=== PATIENT | male | born 1995 | race Caucasian/White ===

== ENCOUNTER 2017-05-08 22:47 | Inpatient (IN) | payer SELFPAY ==
[~2017-05-08] VITALS: Ht 182.9 cm; Wt 82.2 kg
[~2017-05-08 22:47] MED LIST: ALL220TA PO; Z.0.NO CURRENT MEDS
[2017-05-08 22:59] VITALS: BP 162/101; PULSE 92; RESP 24; TEMP 98.5; O2SAT 100
[2017-05-08 23:10] VITALS: BP 149/87; PULSE 82; RESP 18; RESP 20; TEMP 98.5; O2SAT 100
[2017-05-08] MEDS ORDERED: SODIUM CHLOR 0.9% 1000 ML INJ 1,000 ML IV SCH (23:16)
--- NOTE | 2017-05-08 23:22 | PD ---
HPI Chief Complaint: Flank/Kidney Pain Time Seen by Provider: 23:10 Travel History International Travel<30 days: No Contact w/Intl Traveler<30days: No Traveled to known affect area: No History of Present Illness HPI 21-year-old male here for evaluation of sharp left upper quadrant abdominal pain /left lower chest pain. Symptoms started spontaneously today while at work. He has had similar pains in the past, however they usually resolve on their own. This time the pain is more severe and is more persistent. Pain is worse with inspiration and slightly worse with movements. No history of abdominal surgeries. No known history of cardiopulmonary disease. No history of DVT or PE. No trauma. He denies urinary symptoms such as hematuria or dysuria. No fevers or chills. He smokes marijuana. Denies IVDU. [facility] Past Medical History Developmental Delay: No Diminished Hearing: No Immunizations Current: Yes Social History Alcohol Use: No Tobacco Use: No Substance Use: No Allergies-Medications (Allergen,Severity, Reaction): Coded Allergies: No Known Allergies (Unverified , 08/22/12) Reported Meds & Prescriptions Reported Meds & Active Scripts Active No Active Prescriptions or Reported Medications Review of Systems Except as stated in HPI: all other systems reviewed are Neg Physical Exam Narrative GENERAL: Well-developed, well-nourished, mild distress secondary to pain, appears anxious. SKIN: Focused skin assessment warm/dry. No rash. HEAD: Atraumatic. Normocephalic. EYES: Pupils equal and round. No scleral icterus. No injection or drainage. ENT: Mucous membranes pink and moist. NECK: Trachea midline. No JVD. CARDIOVASCULAR: Regular rate and rhythm. RESPIRATORY: No accessory muscle use. Clear to auscultation. Breath sounds equal bilaterally. GASTROINTESTINAL: Abdomen soft, nondistended. Mild left upper quadrant tenderness without peritoneal signs. Rest of abdomen is soft and nontender. MUSCULOSKELETAL: No obvious deformities. No clubbing. No cyanosis. No edema. Mild left lower/anterior/lateral chest wall tenderness without crepitus, without step-off, without paradoxical chest wall movement. NEUROLOGICAL: Awake and alert. No obvious cranial nerve deficits. Motor grossly within normal limits. Normal speech. PSYCHIATRIC: Appropriate mood and affect; insight and judgment normal. Data Data Last Documented VS Vital Signs Date Time Temp Pulse Resp B/P (MAP) Pulse Ox O2 Delivery O2 Flow Rate FiO2 8/27/17 23:15 77 20 05/08/17 23:10 100 Room Air 05/08/17 22:59 98.5 Orders Orders Complete Blood Count With Diff (05/08/17 23:16) Comprehensive Metabolic Panel (05/08/17 23:16) Lipase (05/08/17 23:16) Prothrombin Time / Inr (Pt) (05/08/17 23:16) Act Partial Throm Time (Ptt) (05/08/17 23:16) Urinalysis - C+S If Indicated (05/08/17 23:16) Ct Abd/Pel W Iv Contrast(Rout) (05/08/17 23:16) Iv Access Insert/Monitor (05/08/17 23:16) Ecg Monitoring (05/08/17 23:16) Oximetry (05/08/17 23:16) Morphine Inj (Morphine Inj) (05/08/17 23:30) Sodium Chlor 0.9% 1000 Ml Inj (Ns 1000 M (05/08/17 23:16) Sodium Chloride 0.9% Flush (Ns Flush) (05/08/17 23:30) Chest, Single Ap (05/08/17 23:16) Ct Pulmonary Angiogram (05/08/17 23:16) Ckmb (Isoenzyme) Profile (05/08/17 23:16) Troponin I (05/08/17 23:16) Electrocardiogram (05/08/17 ) Labs Laboratory Tests Test 05/08/17 23:30 White Blood Count 16.0 TH/MM3 Red Blood Count 4.61 MIL/MM3 Hemoglobin 15.2 GM/DL Hematocrit 44.4 % Mean Corpuscular Volume 96.2 FL Mean Corpuscular Hemoglobin 32.9 PG Mean Corpuscular Hemoglobin Concent 34.2 % Red Cell Distribution Width 12.1 % Platelet Count 245 TH/MM3 Mean Platelet Volume 9.8 FL Neutrophils (%) (Auto) 81.3 % Lymphocytes (%) (Auto) 10.8 % Monocytes (%) (Auto) 5.9 % Eosinophils (%) (Auto) 0.6 % Basophils (%) (Auto) 1.4 % Neutrophils # (Auto) 13.1 TH/MM3 Lymphocytes # (Auto) 1.7 TH/MM3 Monocytes # (Auto) 0.9 TH/MM3 Eosinophils # (Auto) 0.1 TH/MM3 Basophils # (Auto) 0.2 TH/MM3 CBC Comment DIFF FINAL Differential Comment MDM Medical Decision Making Medical Screen Exam Complete: Yes Emergency Medical Condition: Yes Interpretation(s) EKG: Sinus, rate 89, normal axis, normal intervals, no acute ischemic abnormality. Differential Diagnosis Pneumothorax, PE, pleurisy, gastritis, peptic ulcer disease, nephrolithiasis, pyelonephritis, ACS unlikely Narrative Course Initial vital signs show heart rate 92, blood pressure 162/101, pulse ox 100% on room air, oral temp of 98.5F. Chest x-ray: No acute cardiopulmonary abnormality is identified. Scripts No Active Prescriptions or Reported Meds David Belcher MD May 08, 2017 23:22
--- NOTE | 2017-05-08 23:29 | RADRPT ---
EXAM DATE/TIME: 05/08/2017 23:22 [facility] COMPARISON: No previous studies available for comparison. INDICATIONS : Short of breath. MEDICAL HISTORY : None. SURGICAL HISTORY : None. ENCOUNTER: Initial ACUITY: 1 day PAIN SCORE: 6/10 LOCATION: Bilateral chest FINDINGS: Portable AP view of the chest demonstrates a normal-sized cardiac silhouette. No effusion, consolidat ion, or pneumothorax is visualized. The bones and soft tissues demonstrate no acute abnormality. Mult iple lines overlie the patient. CONCLUSION: No acute cardiopulmonary abnormality is identified. Sylvester Duval MD on May 08, 2017 at 23:27 Board Certified Radiologist. This report was verified electronically.
[2017-05-08] MEDS ORDERED: SODIUM CHLORIDE 0.9% FLUSH 10 ML FLUSH IV FLUSH PRN (23:30)
[2017-05-08] MEDS ORDERED: MORPHINE SULFATE 4 MG/ML INJ IV PUSH ONE (23:30)
[2017-05-08] MEDS ORDERED: IOHEXOL 350 MG/ML 10 ML VIAL (for RAD DIAG) IVCONTRAST ONE (23:45)
[2017-05-08 23:50] LABS: AUTOMATED NEUTROPHIL # 13.1 TH/MM3 (1.8-7.7); BASOPHIL # 0.2 TH/MM3 (0-0.2); BASOPHIL % 1.4 % (0.0-2.0); EOSINOPHIL # 0.1 TH/MM3 (0-0.4); EOSINOPHIL % 0.6 % (0.0-4.0); HEMATOCRIT 44.4 % (39.0-51.0); LYMPH % 10.8 % (9.0-44.0); LYMPHOCYTE # 1.7 TH/MM3 (1.0-4.8); MEAN CELL VOLUME 96.2 FL (80.0-100.0); MEAN CORPUSCULAR HEMOGLOBIN 32.9 PG (27.0-34.0); MEAN CORPUSCULAR HGB CONC 34.2 % (32.0-36.0); MONO % 5.9 % (0.0-8.0); NEUT % 81.3 % (16.0-70.0); PLATELET COUNT 245 TH/MM3 (150-450); RED BLOOD COUNT 4.61 MIL/MM3 (4.50-5.90); RED CELL DISTRIBUTION WIDTH 12.1 % (11.6-17.2)
[2017-05-08 23:55] LABS: HEMO FLAGS DIFF FINAL
[2017-05-08 23:57] LABS: CHLORIDE 101 MEQ/L (98-107); POTASSIUM 3.8 MEQ/L (3.5-5.1); SODIUM (NA) 137 MEQ/L (136-145)
[2017-05-09] VITALS (10 sets, daily range): BP systolic 124–143; BP diastolic 65–86; PULSE 45–71; RESP 16–19; TEMP 95.4–96.8; O2SAT 97–100
[2017-05-09 00:01] LABS: ANION GAP 10 MEQ/L (5-15); BICARBONATE 25.8 MEQ/L (21.0-32.0); BLOOD UREA NITROGEN 13 MG/DL (7-18)
[2017-05-09 00:03] LABS: APTT (PATIENT) 28.2 SEC (24.3-30.1); INTERNATIONAL NORMALIZED RATIO 0.9 RATIO; PROTHROMBIN TIME - PATIENT 10.1 SEC (9.8-11.6)
[2017-05-09 00:04] LABS: ALT (GPT) 20 U/L (12-78); AST (GOT) 21 U/L (15-37); GLOMERULAR FILTRATION RATE 51 ML/MIN (>89)
[2017-05-09 00:06] LABS: TOTAL BILIRUBIN ADULT 0.4 MG/DL (0.2-1.0)
[2017-05-09 00:07] LABS: ALKALINE PHOSPHATASE 69 U/L (45-117); CREATINE KINASE 217 U/L (39-308)
[2017-05-09 00:19] LABS: CKMB 1.5 NG/ML (0.5-3.6)
--- NOTE | 2017-05-09 00:37 | RADRPT ---
EXAM DATE/TIME: 05/09/2017 00:02 [facility] COMPARISON: No previous studies available for comparison. INDICATIONS : Left flank pain. IV CONTRAST: 100 cc Omnipaque 350 (iohexol) IV ; Cumulative dose for multiple exams. ORAL CONTRAST: No oral contrast ingested. RADIATION DOSE: 12.44 CTDIvol (mGy) MEDICAL HISTORY : None SURGICAL HISTORY : None. ENCOUNTER: Initial ACUITY: 1 day PAIN SCALE: 7/10 LOCATION: Left flank TECHNIQUE: Volumetric scanning of the abdomen and pelvis was performed. Using automated exposure control and ad justment of the mA and/or kV according to patient size, radiation dose was kept as low as reasonably achievable to obtain optimal diagnostic quality images. DICOM format image data is available electro nically for review and comparison. FINDINGS: LOWER LUNGS: The visualized lower lungs are clear. LIVER: Homogeneous density without lesion. There is no dilation of the biliary tree. No calcified gallston es. SPLEEN: Normal size without lesion. PANCREAS: Within normal limits. KIDNEYS: There is moderate to severe left hydronephrosis and proximal hydroureter caused by an elongated ovoid stone in the left mid ureter measuring approximately 10 cm in line and 8 x 4 mm on the axial image. There is also delayed left nephrogram. No other renal stones are identified. ADRENAL GLANDS: Within normal limits. VASCULAR: There is no aortic aneurysm. BOWEL/MESENTERY: The stomach, small bowel, and colon demonstrate no acute abnormality. There is no free intraperitone al air or fluid. ABDOMINAL WALL: Within normal limits. RETROPERITONEUM: There is no lymphadenopathy. BLADDER: No wall thickening or mass. REPRODUCTIVE: Within normal limits. INGUINAL: There is no lymphadenopathy or hernia. MUSCULOSKELETAL: Within normal limits for patient age. CONCLUSION: 1. There is a stone in the left mid ureter causing severe left hydronephrosis and hydroureter and del ayed nephrogram. It measures approximately 10 mm in length. 2. No other acute finding is identified in the abdomen or pelvis. Sylvester Duval MD on May 09, 2017 at 0:32 Board Certified Radiologist. This report was verified electronically.
--- NOTE | 2017-05-09 00:41 | RADRPT ---
EXAM DATE/TIME: 05/09/2017 00:02 [facility] COMPARISON: No previous studies available for comparison. INDICATIONS : Left chest pain. IV CONTRAST: 100 cc Omnipaque 350 (iohexol) IV ; Cumulative dose for multiple exams. RADIATION DOSE: 14.29 CTDIvol (mGy) MEDICAL HISTORY : None SURGICAL HISTORY : None. ENCOUNTER: Initial ACUITY: 1 day PAIN SCALE: 7/10 LOCATION: Left chest TECHNIQUE: Volumetric scanning of the chest was performed using a pulmonary embolism protocol MIP images were re constructed. Using automated exposure control and adjustment of the mA and/or kV according to patien t size, radiation dose was kept as low as reasonably achievable to obtain optimal diagnostic quality images. DICOM format image data is available electronically for review and comparison. Follow-up recommendations for detected pulmonary nodules are based at a minimum on nodule size and pa tient risk factors according to Fleischner Society Guidelines. FINDINGS: PULMONARY ARTERIES: No filling defects are seen in the pulmonary arteries through the segmental level. LUNGS: There is mild respiratory motion artifact. There is no consolidation or pneumothorax. In the right lo wer lobe there is a subpleural nodule measuring 4 mm in the left lower lobe there is a 4 mm subpleura l nodule. Based on appearance this could represent intrapulmonary lymph nodes. PLEURAE: There is no pleural thickening or pleural effusion. MEDIASTINUM: Heart and great vessels demonstrate no abnormality. There is mild residual thymic tissue in anterior mediastinum. MUSCULOSKELETAL: No acute abnormality. MISCELLANEOUS: The visualized upper abdominal organs demonstrate no acute abnormality. CONCLUSION: 1. No PE is identified. 2. There are 4 mm subpleural nodules identified in the lower lobes bilaterally. Given patient's age a nd low risk for primary pulmonary malignancy, no specific followup is needed. Sylvester Duval MD on May 09, 2017 at 0:36 Board Certified Radiologist. This report was verified electronically.
[2017-05-09] MEDS ORDERED: KETOROLAC TROMETHAMINE 30 MG/ML (IVP) VIAL IV PUSH ONE (00:45)
[2017-05-09] MEDS ORDERED: ONDANSETRON HCL 4 MG/2 ML VIAL IV PUSH ONE (00:45)
[2017-05-09 01:00] LABS: BLOOD, URINE LARGE (NEG); GLUCOSE,URINE NEG (NEG); KETONE, URINE NEG (NEG); NITRITE,URINE NEG (NEG); PH, URINE 8.5 (5.0-8.5)
[2017-05-09 01:06] LABS: URINE COLOR YELLOW (YELLW/STRAW)
[2017-05-09 01:07] LABS: MUCUS URINE OCC /lpf (OCC)
[2017-05-09 01:08] LABS: BACTERIA, URINE FEW /hpf; COMMENT (UR) CULT NOT INDICATED; CULTURE IF INDICATED CULT NOT INDICATED; RBC, URINE 100-200 /hpf (0-3); SQUAMOUS EPITHELIAL CELL URINE 0-5 /hpf (0-5)
--- NOTE | 2017-05-09 01:18 | PD ---
Physical Exam Narrative Patient was seen by ED physician and signed out to me. Data Data Last Documented VS Vital Signs Date Time Temp Pulse Resp B/P (MAP) Pulse Ox O2 Delivery O2 Flow Rate FiO2 05/08/17 23:55 18 05/08/17 23:15 77 05/08/17 23:10 100 Room Air 05/08/17 22:59 98.5 Orders Orders Complete Blood Count With Diff (05/08/17 23:16) Comprehensive Metabolic Panel (05/08/17 23:16) Lipase (05/08/17 23:16) Prothrombin Time / Inr (Pt) (05/08/17 23:16) Act Partial Throm Time (Ptt) (05/08/17 23:16) Urinalysis - C+S If Indicated (05/08/17 23:16) Ct Abd/Pel W Iv Contrast(Rout) (05/08/17 23:16) Iv Access Insert/Monitor (05/08/17 23:16) Ecg Monitoring (05/08/17 23:16) Oximetry (05/08/17 23:16) Morphine Inj (Morphine Inj) (05/08/17 23:30) Sodium Chlor 0.9% 1000 Ml Inj (Ns 1000 M (05/08/17 23:16) Sodium Chloride 0.9% Flush (Ns Flush) (05/08/17 23:30) Chest, Single Ap (05/08/17 23:16) Ct Pulmonary Angiogram (05/08/17 23:16) Ckmb (Isoenzyme) Profile (05/08/17 23:16) Troponin I (05/08/17 23:16) Electrocardiogram (05/08/17 ) CKMB (05/08/17 23:30) CKMB% (05/08/17 23:30) Iohexol 350 Inj (Omnipaque 350 Inj) (05/08/17 23:45) Ketorolac Inj (Toradol Inj) (05/09/17 00:45) Ondansetron Inj (Zofran Inj) (05/09/17 00:45) Labs Laboratory Tests Test 05/08/17 23:30 05/09/17 00:50 White Blood Count 16.0 TH/MM3 Red Blood Count 4.61 MIL/MM3 Hemoglobin 15.2 GM/DL Hematocrit 44.4 % Mean Corpuscular Volume 96.2 FL Mean Corpuscular Hemoglobin 32.9 PG Mean Corpuscular Hemoglobin Concent 34.2 % Red Cell Distribution Width 12.1 % Platelet Count 245 TH/MM3 Mean Platelet Volume 9.8 FL Neutrophils (%) (Auto) 81.3 % Lymphocytes (%) (Auto) 10.8 % Monocytes (%) (Auto) 5.9 % Eosinophils (%) (Auto) 0.6 % Basophils (%) (Auto) 1.4 % Neutrophils # (Auto) 13.1 TH/MM3 Lymphocytes # (Auto) 1.7 TH/MM3 Monocytes # (Auto) 0.9 TH/MM3 Eosinophils # (Auto) 0.1 TH/MM3 Basophils # (Auto) 0.2 TH/MM3 CBC Comment DIFF FINAL Differential Comment Prothrombin Time 10.1 SEC Prothromb Time International Ratio 0.9 RATIO Activated Partial Thromboplast Time 28.2 SEC Blood Urea Nitrogen 13 MG/DL Creatinine 1.70 MG/DL Random Glucose 172 MG/DL Total Protein 7.9 GM/DL Albumin 4.2 GM/DL Calcium Level 9.2 MG/DL Alkaline Phosphatase 69 U/L Aspartate Amino Transf (AST/SGOT) 21 U/L Alanine Aminotransferase (ALT/SGPT) 20 U/L Total Bilirubin 0.4 MG/DL Sodium Level 137 MEQ/L Potassium Level 3.8 MEQ/L Chloride Level 101 MEQ/L Carbon Dioxide Level 25.8 MEQ/L Anion Gap 10 MEQ/L Estimat Glomerular Filtration Rate 51 ML/MIN Total Creatine Kinase 217 U/L Creatine Kinase MB 1.5 NG/ML Troponin I LESS THAN 0.02 NG/ML Lipase 171 U/L Urine Color YELLOW Urine Turbidity SLIGHT Urine pH 8.5 Urine Specific [place] GREATER THAN 1.035 Urine Protein 30 mg/dL Urine Glucose (UA) NEG mg/dL Urine Ketones NEG mg/dL Urine Occult Blood LARGE Urine Nitrite NEG Urine Bilirubin NEG Urine Leukocyte Esterase NEG Urine RBC 100-200 /hpf Urine Squamous Epithelial Cells 0-5 /hpf Urine Amorphous Sediment FEW Urine Bacteria FEW /hpf Urine Mucus OCC /lpf Microscopic Urinalysis Comment CULT NOT INDICATED MDM Supervised Visit with GEORGETTE: No Interpretation(s) Last Impressions Chest X-Ray 05/08/17 0623 Signed Impressions: Service Date/Time: Monday, May 08, 2017 23:22 - CONCLUSION: No acute cardiopulmonary abnormality is identified. Sylvester Duval MD CT Angiography 05/08/17 2316 Signed Impressions: Service Date/Time: Tuesday, May 09, 2017 00:02 - CONCLUSION: 1. No PE is identified. 2. There are 4 mm subpleural nodules identified in the lower lobes bilaterally. Given patient's age and low risk for primary pulmonary malignancy , no specific followup is needed. Sylvester Duval MD Abdomen/Pelvis CT 05/08/17 2316 Signed Impressions: Service Date/Time: Tuesday, May 09, 2017 00:02 - CONCLUSION: 1. There is a stone in the left mid ureter causing severe left hydronephrosis and hydroureter and delayed nephrogram. It measures approximately 10 mm in length. 2. No other acute finding is identified in the abdomen or pelvis. Sylvester Duval MD Narrative Course Normal saline solution 1 25 cc an hour. Morphine 4 mg IV. Toradol 30 mg IV. Zofran 4 mg IV. Diagnosis Primary Impression: Nephrolithiasis Admitting Information Admitting Physician Requests: Admit Scripts No Active Prescriptions or Reported Meds Garcia Chen MD May 09, 2017 01:18
[2017-05-09] MEDS ORDERED: MAGNESIUM HYDROXIDE SUSP 30 ML CUP PO PRN (01:30)
[2017-05-09] MEDS ORDERED: SENNOSIDES 8.6 MG TAB PO PRN (01:30)
[2017-05-09] MEDS ORDERED: ONDANSETRON HCL 4 MG/2 ML VIAL IVP PRN (01:30)
[2017-05-09] MEDS ORDERED: ONDANSETRON HCL 4 MG/2 ML VIAL IV PRN (01:30)
[2017-05-09] MEDS ORDERED: ACETAMINOPHEN 325 MG TAB PO PRN ×3 (01:30→01:45)
[2017-05-09] MEDS ORDERED: ACETAMINOPHEN/HYDROcodone 325 MG/5 MG TAB PO PRN ×2 (01:30→11:45)
[2017-05-09] MEDS ORDERED: LACTULOSE SYRUP 20 GM/30 ML CUP PO PRN (01:30)
[2017-05-09] MEDS ORDERED: SODIUM CHLORIDE 0.9% FLUSH 10 ML FLUSH IVF PRN (01:30)
[2017-05-09] MEDS ORDERED: SODIUM CHLORIDE 0.9% FLUSH 10 ML FLUSH IV FLUSH PRN (01:30)
[2017-05-09] MEDS ORDERED: BISACODYL 10 MG SUPP RECTAL PRN (01:30)
[2017-05-09] MEDS ORDERED: MORPHINE SULFATE 4 MG/ML INJ IV PRN (01:30)
[2017-05-09] MEDS: SODIUM CHLOR 0.9% 1000 ML INJ 1,000 ML IV SCH ×3 (02:13→21:03)
[2017-05-09] MEDS: SODIUM CHLORIDE 0.9% FLUSH 10 ML FLUSH IV FLUSH SCH ×2 (08:36→21:00)
[2017-05-09] MEDS: DOCUSATE SODIUM 50 MG/SENNA 8.6 MG TAB PO SCH ×2 (08:36→21:02)
[2017-05-09] MEDS ORDERED: SODIUM CHLORIDE 0.9% FLUSH 10 ML FLUSH IV FLUSH SCH (09:00)
[2017-05-09 10:48] LABS: AUTOMATED NEUTROPHIL # 8.6 TH/MM3 (1.8-7.7); BASOPHIL # 0.1 TH/MM3 (0-0.2); BASOPHIL % 0.6 % (0.0-2.0); EOSINOPHIL # 0.2 TH/MM3 (0-0.4); EOSINOPHIL % 1.3 % (0.0-4.0); HEMATOCRIT 37.7 % (39.0-51.0); HEMO FLAGS DIFF FINAL; LYMPH % 18.3 % (9.0-44.0); LYMPHOCYTE # 2.2 TH/MM3 (1.0-4.8); MEAN CELL VOLUME 95.6 FL (80.0-100.0); MEAN CORPUSCULAR HEMOGLOBIN 33.2 PG (27.0-34.0); MEAN CORPUSCULAR HGB CONC 34.7 % (32.0-36.0); MONO % 8.8 % (0.0-8.0); PLATELET COUNT 174 TH/MM3 (150-450); RED BLOOD COUNT 3.95 MIL/MM3 (4.50-5.90); RED CELL DISTRIBUTION WIDTH 11.6 % (11.6-17.2); WHITE BLOOD COUNT 12.2 TH/MM3 (4.0-11.0)
[2017-05-09 10:53] LABS: POTASSIUM 4.2 MEQ/L (3.5-5.1)
[2017-05-09 11:06] LABS: BICARBONATE 29.2 MEQ/L (21.0-32.0)
[2017-05-09] MEDS ORDERED: NALOXONE HCL 0.4 MG/ML AMP IV PRN (11:45)
--- NOTE | 2017-05-09 11:47 | HHI.HP ---
[facility] Primary Care Physician Admission Diagnosis nephrolithiasis Diagnoses: Travel History International Travel<30 Days: No Contact w/Intl Traveler <30 Da: No Traveled to Known Affected Are: No History of Present Illness 21-year-old male with no significant past medical history, who reports 2-3 weeks of worsening intermittent left upper quadrant pain which radiates up and down his left flank, exacerbant of which appears to be dark irene (soda). He denies any fevers, chills, chest pain, shortness of breath, dysuria, diarrhea, constipation. He does report some nausea and vomiting with nonbloody emesis after initial morphine dose. Review of Systems Except as stated in HPI: all other systems reviewed are Neg Past Family Social History Past Medical History Patient denies any past medical history. He does report chronic marijuana smoking Past history of tobacco use. Quit 8 months ago. Past Surgical History Denies any past surgeries Reported Medications denies any medications Allergies: Coded Allergies: No Known Allergies (Unverified , 08/22/12) Family History Mother with autoimmune disorder. Father 2006 from brain aneurysm. Social History Patient with 4 year history of smoking one pack per day. Quit 8 months ago. Reports occasional alcohol use. Reports semi-regular marijuana use. Physical Exam Vital Signs Vital Signs Date Time Temp Pulse Resp B/P (MAP) Pulse Ox O2 Delivery O2 Flow Rate FiO2 05/09/17 08:09 99 21 05/09/17 08:00 95.4 66 18 133/82 (99) 98 05/09/17 04:18 45 05/09/17 03:41 99 21 05/09/17 02:20 05/09/17 02:15 62 16 124/65 (84) 98 Room Air 05/09/17 01:30 62 16 05/09/17 01:10 68 16 137/73 (94) 97 Room Air 05/09/17 00:15 66 18 139/79 (99) 99 Room Air 05/08/17 23:55 18 05/08/17 23:15 77 20 05/08/17 23:10 20 100 Room Air 05/08/17 23:10 82 18 149/87 (107) 100 Room Air 05/08/17 23:10 98.5 82 18 149/87 (107) 100 Room Air 05/08/17 22:59 98.5 92 24 162/101 (121) 100 Physical Exam GENERAL: This is a well-nourished, well-developed patient, in no apparent distress. Alert and oriented 3. SKIN: No rashes, ecchymoses or lesions. Cool and dry. HEAD: Atraumatic. Normocephalic. No temporal or scalp tenderness. EYES: Pupils equal round and reactive. Extraocular motions intact. No scleral icterus. No injection or drainage. ENT: Nose without bleeding, purulent drainage or septal hematoma. Throat without erythema, tonsillar hypertrophy or exudate. Uvula midline. Airway patent. NECK: Trachea midline. No JVD or lymphadenopathy. Supple, nontender, no meningeal signs. CARDIOVASCULAR: Regular rate and rhythm without murmurs, gallops, or rubs. RESPIRATORY: Clear to auscultation. Breath sounds equal bilaterally. No wheezes , rales, or rhonchi. GASTROINTESTINAL: Abdomen soft, non-tender, nondistended. No hepato-splenomegaly , or palpable masses. No guarding. MUSCULOSKELETAL: Extremities without clubbing, cyanosis, or edema. No joint tenderness, effusion, or edema noted. No calf tenderness. Negative Homans sign bilaterally. NEUROLOGICAL: Awake and alert. Cranial nerves II through XII intact. Motor and sensory grossly within normal limits. Five out of 5 muscle strength in all muscle groups. Normal speech. Laboratory Laboratory Tests Test 05/08/17 23:30 05/09/17 00:50 05/09/17 10:05 White Blood Count 16.0 12.2 Red Blood Count 4.61 3.95 Hemoglobin 15.2 13.1 Hematocrit 44.4 37.7 Mean Corpuscular Volume 96.2 95.6 Mean Corpuscular Hemoglobin 32.9 33.2 Mean Corpuscular Hemoglobin Concent 34.2 34.7 Red Cell Distribution Width 12.1 11.6 Platelet Count 245 174 Mean Platelet Volume 9.8 9.6 Neutrophils (%) (Auto) 81.3 71.0 Lymphocytes (%) (Auto) 10.8 18.3 Monocytes (%) (Auto) 5.9 8.8 Eosinophils (%) (Auto) 0.6 1.3 Basophils (%) (Auto) 1.4 0.6 Neutrophils # (Auto) 13.1 8.6 Lymphocytes # (Auto) 1.7 2.2 Monocytes # (Auto) 0.9 1.1 Eosinophils # (Auto) 0.1 0.2 Basophils # (Auto) 0.2 0.1 CBC Comment DIFF FINAL DIFF FINAL Differential Comment Prothrombin Time 10.1 Prothromb Time International Ratio 0.9 Activated Partial Thromboplast Time 28.2 Blood Urea Nitrogen 13 11 Creatinine 1.70 1.50 Random Glucose 172 82 Total Protein 7.9 Albumin 4.2 3.6 Calcium Level 9.2 8.4 Alkaline Phosphatase 69 Aspartate Amino Transf (AST/SGOT) 21 Alanine Aminotransferase (ALT/SGPT) 20 Total Bilirubin 0.4 Sodium Level 137 142 Potassium Level 3.8 4.2 Chloride Level 101 106 Carbon Dioxide Level 25.8 29.2 Anion Gap 10 7 Estimat Glomerular Filtration Rate 51 59 Total Creatine Kinase 217 Creatine Kinase MB 1.5 Troponin I LESS THAN 0.02 Lipase 171 Urine Color YELLOW Urine Turbidity SLIGHT Urine pH 8.5 Urine Specific [place] GREATER THAN 1.035 Urine Protein 30 Urine Glucose (UA) NEG Urine Ketones NEG Urine Occult Blood LARGE Urine Nitrite NEG Urine Bilirubin NEG Urine Leukocyte Esterase NEG Urine RBC 100-200 Urine Squamous Epithelial Cells 0-5 Urine Amorphous Sediment FEW Urine Bacteria FEW Urine Mucus OCC Microscopic Urinalysis Comment CULT NOT INDICATED Phosphorus Level 2.7 Result Diagram: 05/09/17 1005 05/09/17 1005 Imaging Last Impressions Chest X-Ray 05/08/172315 Signed Impressions: Service Date/Time: Monday, May 08, 2017 23:22 - CONCLUSION: No acute cardiopulmonary abnormality is identified. Sylvester Duval MD CT Angiography 05/08/172315 Signed Impressions: Service Date/Time: Tuesday, May 09, 2017 00:02 - CONCLUSION: 1. No PE is identified. 2. There are 4 mm subpleural nodules identified in the lower lobes bilaterally. Given patient's age and low risk for primary pulmonary malignancy , no specific followup is needed. Sylvester Duval MD Abdomen/Pelvis CT 05/08/172315 Signed Impressions: Service Date/Time: Tuesday, May 09, 2017 00:02 - CONCLUSION: 1. There is a stone in the left mid ureter causing severe left hydronephrosis and hydroureter and delayed nephrogram. It measures approximately 10 mm in length. 2. No other acute finding is identified in the abdomen or pelvis. MD Eliud Mckinnon VTE Risk Assessment Eliud VTE Risk Assessment: No/Low Risk (score <= 1) Caprini Risk Assessment Model Point Value = 1 Point Value = 2 Point Value = 3 Point Value = 5 Age 41-60 Minor surgery BMI > 25 kg/m2 Swollen legs Varicose veins or History of unexplained or recurrent spontaneous Oral contraceptives or hormone replacement Sepsis (< 1 month) Serious lung disease, including pneumonia (< 1 month) Abnormal pulmonary function Acute myocardial infarction Congestive heart failure (< 1 month) History of inflammatory bowel disease Medical patient at bed rest Age 61-74 Arthroscopic surgery Major open surgery (> 45 min) Laparoscopic surgery (> 45 min) Malignancy Confined to bed (> 72 hours) Immobilizing plaster cast Central venous access Age >= 75 History of VTE Family history of VTE Factor V Leiden Prothrombin [id number] Lupus anticoagulant Anticardiolipin antibodies Elevated serum homocysteine Heparin-induced thrombocytopenia Other congenital or acquired thrombophilia Stroke (< 1 month) Elective arthroplasty Hip, pelvis, or leg fracture Acute spinal cord injury (< 1 month) Prophylaxis Regimen Total Risk Factor Score Risk Level Prophylaxis Regimen 0-1 Low Early ambulation 2 Moderate Order ONE of the following: *Sequential Compression Device (SCD) *Heparin 5000 units SQ BID 3-4 Higher Order ONE of the following medications: *Heparin 5000 units SQ TID *Enoxaparin/Lovenox 40 mg SQ daily (WT < 150 kg, CrCl > 30 mL/min) *Enoxaparin/Lovenox 30 mg SQ daily (WT < 150 kg, CrCl > 10-29 mL/min) *Enoxaparin/Lovenox 30 mg SQ BID (WT < 150 kg, CrCl > 30 mL/min) AND/OR *Sequential Compression Device (SCD) 5 or more Highest Order ONE of the following medications: *Heparin 5000 units SQ TID (Preferred with Epidurals) *Enoxaparin/Lovenox 40 mg SQ daily (WT < 150 kg, CrCl > 30 mL/min) *Enoxaparin/Lovenox 30 mg SQ daily (WT < 150 kg, CrCl > 10-29 mL/min) *Enoxaparin/Lovenox 30 mg SQ BID (WT < 150 kg, CrCl > 30 mL/min) AND *Sequential Compression Device (SCD) Assessment and Plan Assessment and Plan //Nephrolithiasis //Left-sided hydronephrosis //Acute kidney injury. -Creatinine 1.7 on admission. -1 cm stone left ureter with hydronephrosis on CT abdomen. -Continue on IV fluids -By mouth Narcotics for pain control. Urology following. Appreciate assistance. //Leukocytosis. White blood cells 16.0 on admission, subsequently 12.2 today. This is likely stress-induced. Patient has had no fevers. Urinalysis with RBCs , however no leukocyte esterase or white blood cells. No indication of pyelonephritis on CT abdomen. Low threshold for antibiotics. //Opioid-induced nausea. Zofran as needed. By mouth [place] ordered. //Marijuana use. Station counseling provided. //Prophylaxis. Patient is on ambulatory Code Status Full code Discussed Condition With Patient, nurse Physician Certification 2 Midnight Certification Type: Admission for Inpatient Services Order for Inpatient Services The services are ordered in accordance with Medicare regulations or non- Medicare payer requirements, as applicable. In the case of services not specified as inpatient-only, they are appropriately provided as inpatient services in accordance with the 2-midnight benchmark. Estimated LOS (days): 2 days is the estimated time the patient will need to remain in the hospital, assuming treatment plan goals are met and no additional complications. Post-Hospital Plan: Home Giles Valdes MD May 09, 2017 11:47
[2017-05-09] MEDS ORDERED: IOHEXOL 350 MG/ML 50 ML BTL (for RAD DIAG) ONE ×2 (12:00→18:56)
[2017-05-09] MEDS ORDERED: PROPOFOL 200 MG/20 ML AMP IV ONE (12:00)
[2017-05-09] MEDS ORDERED: SODIUM CHLORIDE 0.9% 10 ML VIAL ONE (12:00)
[2017-05-09] MEDS: ACETAMINOPHEN/HYDROcodone 325 MG/7.5 MG TAB PO PRN ×2 (12:26→21:03)
--- NOTE | 2017-05-09 15:09 | EKG ---
Date Performed: 05/08/2017 Time Performed: 23:36:03 PTAGE: 21 years EKG: Sinus rhythm NORMAL ECG NO PREVIOUS TRACING DOCTOR: Fareed Ortiz Interpretating Date/Time 05/09/2017 15:07:07
[2017-05-09] MEDS ORDERED: MIDAZOLAM HCL 2 MG/2 ML VIAL ONE (17:10)
[2017-05-09] MEDS ORDERED: FAMOTIDINE 20 MG/2 ML VIAL ONE (17:10)
[2017-05-09] MEDS ORDERED: DEXAMETHASONE SOD PHOS 4 MG/ML VIAL ONE ×2 (17:10→17:41)
[2017-05-09] MEDS ORDERED: INSULIN HUMAN REGULAR 1,000 UNITS/10 ML VIAL SQ PRN (17:15)
[2017-05-09] MEDS ORDERED: LACTATED RINGER'S 1000 ML IV PRN (17:15)
[2017-05-09] MEDS ORDERED: POVIDONE IODINE 5% (ANTISEPSIS KIT) 4 APPLICATIONS EACH NARE PRN (17:15)
[2017-05-09] MEDS ORDERED: CHLORHEXIDINE GLUCONATE 2 % 1 PACK (2 CLOTHS) TOPICAL PRN (17:15)
[2017-05-09] MEDS ORDERED: METOPROLOL TARTRATE 25 MG TAB PO PRN (17:15)
[2017-05-09] MEDS ORDERED: SODIUM CHLORID 0.9% 500 ML IV PRN (17:15)
[2017-05-09] MEDS ORDERED: ceFAZolin 2 GM PREMIX 50 ML ONE (17:31)
--- NOTE | 2017-05-09 17:38 | PD.CONS ---
HPI Service Urology Consult Requested By Reason for Consult Left ureteral calculus Primary Care Physician No Primary Care Physician Diagnosis: History of Present Illness 21 year-old gentleman with no prior urologic history who presented to the emergency room complaining of left upper quadrant and flank pain. Workup included a CT scan of the abdomen and pelvis that demonstrated a 10 mm left mid ureteral calculus causing marked left hydroureteronephrosis. Patient denies a history of prior renal calculi. He denies a fever or gross hematuria. Review of Systems Constitutional: DENIES: Fever, Chills Cardiovascular: DENIES: Chest pain Gastrointestinal: COMPLAINS OF: Abdominal pain (left upper quadrant) Genitourinary: DENIES: Hematuria, Dysuria Musculoskeletal: COMPLAINS OF: Back pain (left flank) Except as stated in HPI: all other systems reviewed are Neg Past Family Social History Past Medical History Denies significant past medical history Past Surgical History Denies major surgery Reported Medications None Allergies: Coded Allergies: No Known Allergies (Unverified , 08/22/12) Active Ordered Medications Refer to EMR Family History Reviewed and noncontributory Social History Former smoker 1 pack per day 4 years who quit approximately 8 months ago Occasional alcohol use Denies intravenous drug abuse Physical Exam Vital Signs Date Time Temp Pulse Resp B/P (MAP) Pulse Ox O2 Delivery O2 Flow Rate FiO2 05/09/17 13:03 96.8 55 19 133/79 (97) 100 05/09/17 08:09 99 21 05/09/17 08:00 95.4 66 18 133/82 (99) 98 05/09/17 04:18 45 05/09/17 03:41 99 21 05/09/17 02:20 05/09/17 02:15 62 16 124/65 (84) 98 Room Air 05/09/17 01:30 62 16 05/09/17 01:10 68 16 137/73 (94) 97 Room Air 05/09/17 00:15 66 18 139/79 (99) 99 Room Air 05/08/17 23:55 18 05/08/17 23:15 77 20 05/08/17 23:10 20 100 Room Air 05/08/17 23:10 82 18 149/87 (107) 100 Room Air 05/08/17 23:10 98.5 82 18 149/87 (107) 100 Room Air 05/08/17 22:59 98.5 92 24 162/101 121) 100 Physical Exam GENERAL: This is a well-nourished, well-developed patient, in no apparent distress. SKIN: No rashes, ecchymoses or lesions. Cool and dry. HEAD: Atraumatic. Normocephalic. No temporal or scalp tenderness. EYES: Pupils equal round and reactive. Extraocular motions intact. No scleral icterus. No injection or drainage. ENT: Nose without bleeding, purulent drainage or septal hematoma. Throat without erythema, tonsillar hypertrophy or exudate. Uvula midline. Airway patent. NECK: Trachea midline. No JVD or lymphadenopathy. Supple, nontender, no meningeal signs. CARDIOVASCULAR: Regular rate and rhythm without murmurs, gallops, or rubs. RESPIRATORY: Clear to auscultation. Breath sounds equal bilaterally. No wheezes , rales, or rhonchi. GASTROINTESTINAL: Abdomen soft, non-tender, nondistended. No hepato-splenomegaly , or palpable masses. No guarding. GENITOURINARY: MUSCULOSKELETAL: Extremities without clubbing, cyanosis, or edema. No joint tenderness, effusion, or edema noted. No calf tenderness. Negative Homans sign bilaterally. NEUROLOGICAL: Awake and alert. Cranial nerves II through XII intact. Motor and sensory grossly within normal limits. Five out of 5 muscle strength in all muscle groups. Normal speech. Lab results reviewed: Yes Laboratory Tests Test 05/08/17 23:30 05/09/17 00:50 05/09/17 10:05 White Blood Count 16.0 12.2 Red Blood Count 4.61 3.95 Hemoglobin 15.2 13.1 Hematocrit 44.4 37.7 Mean Corpuscular Volume 96.2 95.6 Mean Corpuscular Hemoglobin 32.9 33.2 Mean Corpuscular Hemoglobin Concent 34.2 34.7 Red Cell Distribution Width 12.1 11.6 Platelet Count 245 174 Mean Platelet Volume 9.8 9.6 Neutrophils (%) (Auto) 81.3 71.0 Lymphocytes (%) (Auto) 10.8 18.3 Monocytes (%) (Auto) 5.9 8.8 Eosinophils (%) (Auto) 0.6 1.3 Basophils (%) (Auto) 1.4 0.6 Neutrophils # (Auto) 13.1 8.6 Lymphocytes # (Auto) 1.7 2.2 Monocytes # (Auto) 0.9 1.1 Eosinophils # (Auto) 0.1 0.2 Basophils # (Auto) 0.2 0.1 CBC Comment DIFF FINAL DIFF FINAL Differential Comment Prothrombin Time 10.1 Prothromb Time International Ratio 0.9 Activated Partial Thromboplast Time 28.2 Blood Urea Nitrogen 13 11 Creatinine 1.70 1.50 Random Glucose 172 82 Total Protein 7.9 Albumin 4.2 3.6 Calcium Level 9.2 8.4 Alkaline Phosphatase 69 Aspartate Amino Transf (AST/SGOT) 21 Alanine Aminotransferase (ALT/SGPT) 20 Total Bilirubin 0.4 Sodium Level 137 142 Potassium Level 3.8 4.2 Chloride Level 101 106 Carbon Dioxide Level 25.8 29.2 Anion Gap 10 7 Estimat Glomerular Filtration Rate 51 59 Total Creatine Kinase 217 Creatine Kinase MB 1.5 Troponin I LESS THAN 0.02 Lipase 171 Urine Color YELLOW Urine Turbidity SLIGHT Urine pH 8.5 Urine Specific [place] GREATER THAN 1.035 Urine Protein 30 Urine Glucose (UA) NEG Urine Ketones NEG Urine Occult Blood LARGE Urine Nitrite NEG Urine Bilirubin NEG Urine Leukocyte Esterase NEG Urine RBC 100-200 Urine Squamous Epithelial Cells 0-5 Urine Amorphous Sediment FEW Urine Bacteria FEW Urine Mucus OCC Microscopic Urinalysis Comment CULT NOT INDICATED Phosphorus Level 2.7 Result Diagram: 05/09/17 1005 05/09/17 1005 Personally reviewed images: Yes Imaging Last Impressions Chest X-Ray 05/08/172315 Signed Impressions: Service Date/Time: Monday, May 08, 2017 23:22 - CONCLUSION: No acute cardiopulmonary abnormality is identified. Sylvester Duval MD CT Angiography 05/08/172315 Signed Impressions: Service Date/Time: Tuesday, May 09, 2017 00:02 - CONCLUSION: 1. No PE is identified. 2. There are 4 mm subpleural nodules identified in the lower lobes bilaterally. Given patient's age and low risk for primary pulmonary malignancy , no specific followup is needed. Sylvester Duval MD Abdomen/Pelvis CT 05/08/172315 Signed Impressions: Service Date/Time: Tuesday, May 09, 2017 00:02 - CONCLUSION: 1. There is a stone in the left mid ureter causing severe left hydronephrosis and hydroureter and delayed nephrogram. It measures approximately 10 mm in length. 2. No other acute finding is identified in the abdomen or pelvis. Sylvester Duval MD Assessment and Plan Assessment and Plan UROLOGIC IMPRESSION: 10mm obstructing mid left ureteral calculus PLAN: #1 Keep pt npo #2 Cysto, left RPG and left ureteral stent insertion today #3 Further management with outpatient ESWL Conrad Nassar MD May 09, 2017 17:38
--- NOTE | 2017-05-09 18:50 | PD.OP ---
Operative Report Date of Surgery: May 09, 2017 Preoperative Diagnosis: (1) Ureteral calculus, left Postoperative Diagnosis: (1) Ureteral calculus, left Procedure: Cystoscopy, left retrograde pyelogram and left ureteral stent placement Anesthesia: General Surgeon: Conrad Nassar Powerplant Operator(s): None Operation and Findings: Indication for procedure: Case of a pleasant 21-year-old gentleman with a 10 mm obstructing left mid ureteral calculus who presents now for cystoscopy, left retrograde pyelogram and left ureteral stent placement. Operative procedure in detail: Patient was brought to the operating room suite and placed supine on the OR table. He was then placed under general endotracheal anesthesia. He was then repositioned in the dorsolithotomy position and prepped and draped in normal sterile fashion. After an appropriate timeout was undertaken to proceed with cystoscopic evaluation utilizing the rigid cystoscope with a 20 Turkmen sheath and 30 lens. The urethra was patent without stricture formation, the prostatic urethra was not obstructing and further passes of the cystoscope within the urinary bladder revealed both right and left orifices to be in correct anatomic position. There was clear reflux on the right and sluggish reflex on the left side. A 6 Turkmen open-ended ureteral catheter was next utilized and a left sided retrograde pyelogram study was performed that demonstrated the obstructing left mid ureteral calculus. I then was able to pass a sensor 0.035 wire beyond the calculus under fluoroscopic guidance. The open-ended catheter was withdrawn and a 6 Turk[place] 26 cm mcfp double-J stent was placed under both cystoscopic and fluoroscopic guidance without difficulty. Once the stent was in proper position the trailing string was removed. The bladder was extremely evaluated fluid and the cystoscope withdrawn. The patient tolerated the procedures without complications and was transferred to the PACU in satisfactory condition. Conrad Nassar MD May 09, 2017 18:50
--- NOTE | 2017-05-09 20:22 | RADRPT ---
EXAM DATE/TIME: 05/09/2017 18:51 [facility] COMPARISON: CT ABDOMEN & PELVIS W CONTRAST, May 09, 2017, 0:02. INDICATIONS : Renal calculi. Left ureteral stent placement. FLUORO TIME: 0.48 minutes 2 CONTRAST: Instilled by Ordering Physician MEDICAL HISTORY : None. SURGICAL HISTORY : None. ENCOUNTER: Subsequent ACUITY: 1 day PAIN SCORE: Non-responsive. LOCATION: Left abdomen. FINDINGS: 2 images have been submitted. There is a ureteral stent in place with the proximal tip overlying the renal pelvis and the distal tip overlying the bladder. There appears to be an elongated possible ston e adjacent to the proximal aspect of the stent in the proximal ureter. CONCLUSION: Ureteral stent in good position. Sylvester Hoyos MD on May 09, 2017 at 20:18 Board Certified Radiologist. This report was verified electronically.
[2017-05-10] VITALS: BP 139/83; PULSE 69; RESP 18; TEMP 98; O2SAT 96
[2017-05-10] MEDS: ACETAMINOPHEN/HYDROcodone 325 MG/7.5 MG TAB PO PRN (02:36)
[2017-05-10 06:20] LABS: AUTOMATED NEUTROPHIL # 9.9 TH/MM3 (1.8-7.7); BASOPHIL # 0.4 TH/MM3 (0-0.2); EOSINOPHIL % 0.1 % (0.0-4.0); HEMO FLAGS DIFF FINAL; LYMPH % 10.2 % (9.0-44.0); LYMPHOCYTE # 1.2 TH/MM3 (1.0-4.8); MEAN CELL VOLUME 97.7 FL (80.0-100.0); MEAN CORPUSCULAR HEMOGLOBIN 31.6 PG (27.0-34.0); MEAN CORPUSCULAR HGB CONC 32.4 % (32.0-36.0); MONO % 5.9 % (0.0-8.0); NEUT % 80.8 % (16.0-70.0); PLATELET COUNT 221 TH/MM3 (150-450); RED BLOOD COUNT 4.41 MIL/MM3 (4.50-5.90); WHITE BLOOD COUNT 12.2 TH/MM3 (4.0-11.0)
[2017-05-10 06:27] LABS: CHLORIDE 106 MEQ/L (98-107); POTASSIUM 4.3 MEQ/L (3.5-5.1); SODIUM (NA) 140 MEQ/L (136-145)
[2017-05-10 06:33] LABS: ANION GAP 9 MEQ/L (5-15)
[2017-05-10 06:34] LABS: BLOOD UREA NITROGEN 10 MG/DL (7-18)
[2017-05-10 06:36] LABS: ALT (GPT) 18 U/L (12-78); AST (GOT) 18 U/L (15-37); GLOMERULAR FILTRATION RATE 93 ML/MIN (>89)
[2017-05-10 06:37] LABS: TOTAL BILIRUBIN ADULT 0.5 MG/DL (0.2-1.0)
[2017-05-10 06:39] LABS: ALKALINE PHOSPHATASE 60 U/L (45-117)
[2017-05-10 08:00] VITALS: BP 139/76; PULSE 83; RESP 18; TEMP 98.4; O2SAT 100
[2017-05-10 08:03] VITALS: O2SAT 98
[2017-05-10] MEDS: DOCUSATE SODIUM 50 MG/SENNA 8.6 MG TAB PO SCH (08:12)
[2017-05-10] MEDS: SODIUM CHLOR 0.9% 1000 ML INJ 1,000 ML IV SCH (08:13)
[2017-05-10] MEDS: SODIUM CHLORIDE 0.9% FLUSH 10 ML FLUSH IV FLUSH SCH (08:13)
[2017-05-10] MEDS ORDERED: HYDR-3516 PO (12:04)
[2017-05-10] MEDS ORDERED: PHEN0.4T PO (12:04)
--- NOTE | 2017-05-10 12:06 | HHI.PR ---
Subjective Remarks Follow-up for 10 mm obstructing left mid ureteral calculus. Patient is currently doing well. He will underwent cystoscopy, left retrograde pyelogram and left ureteral stent placement on 05/10/2017. Denies any fever or chills. Mother is at bedside. Objective Vitals Vital Signs Date Time Temp Pulse Resp B/P (MAP) Pulse Ox O2 Delivery O2 Flow Rate FiO2 05/10/17 08:03 98 21 05/10/17 08:00 98.4 83 18 139/76 (97) 100 05/10/17 00:00 98.0 69 18 139/83 (101) 96 05/09/17 21:00 98 21 05/09/17 20:00 96.4 71 18 143/86 (105) 99 05/09/17 19:30 98.4 74 16 129/75 (93) 100 Room Air 05/09/17 19:15 67 16 134/77 (96) 100 Room Air 05/09/17 19:00 97.7 76 16 141/88 (105) 97 Room Air 05/09/17 17:10 97.8 67 16 155/79 (104) 98 05/09/17 13:03 96.8 55 19 133/79 (97) 100 I/O 05/09/17 05/09/17 05/09/17 05/10/17 05/10/17 05/10/17 06:59 14:59 22:59 06:59 14:59 22:59 Intake Total 2000 ml 1000 ml 600 ml 588 ml 400 ml Output Total 320 ml Balance 1680 ml 1000 ml 600 ml 588 ml 400 ml Intake IV Total 2000 ml 1000 ml 600 ml 588 ml 400 ml Output Urine Total 320 ml Result Diagram: 05/10/17 0555 05/10/17 0555 Imaging Last Impressions Retrograde Pyelogram 05/09/17 0000 Signed Impressions: Service Date/Time: Tuesday, May 09, 2017 18:51 - CONCLUSION: Ureteral stent in good position. Sylvester Hoyos MD Chest X-Ray 05/08/172315 Signed Impressions: Service Date/Time: Monday, May 08, 2017 23:22 - CONCLUSION: No acute cardiopulmonary abnormality is identified. Sylvester Duval MD CT Angiography 05/08/172315 Signed Impressions: Service Date/Time: Tuesday, May 09, 2017 00:02 - CONCLUSION: 1. No PE is identified. 2. There are 4 mm subpleural nodules identified in the lower lobes bilaterally. Given patient's age and low risk for primary pulmonary malignancy , no specific followup is needed. Sylvester Duval MD Abdomen/Pelvis CT 05/08/17 2316 Signed Impressions: Service Date/Time: Tuesday, May 09, 2017 00:02 - CONCLUSION: 1. There is a stone in the left mid ureter causing severe left hydronephrosis and hydroureter and delayed nephrogram. It measures approximately 10 mm in length. 2. No other acute finding is identified in the abdomen or pelvis. Sylvester Duval MD Objective Remarks GENERAL: Alert, oriented 3, NAD. SKIN: Warm and dry. HEAD: Normocephalic. EYES: No scleral icterus. No injection or drainage. NECK: Supple, trachea midline. No JVD or lymphadenopathy. CARDIOVASCULAR: Regular rate and rhythm without murmurs, gallops, or rubs. RESPIRATORY: Breath sounds equal bilaterally. No accessory muscle use. GASTROINTESTINAL: Abdomen soft, non-tender, nondistended. MUSCULOSKELETAL: No cyanosis, or edema. BACK: Nontender without obvious deformity. No CVA tenderness. Procedures 05/09/2017 Cystoscopy, left retrograde pyelogram and left ureteral stent placement A/P Assessment and Plan Nephrolithiasis Left-sided hydronephrosis Acute kidney injury. S/P Cystoscopy, left retrograde pyelogram and left ureteral stent placement Creatinine 1.7 on admission, improved to 1.00 on the day of discharge. Leukocytosis improved 16.0 --> 12.2. No signs of infections. 1 cm stone left ureter with hydronephrosis on CT abdomen. Continued on IV fluids By mouth Narcotics for pain control. Urology cleared for discharge. Full code. Ambulation. Discharge patient to home Condition on discharge: Improved Regular Diet as tolerated Ad Dorothy activity Rx written: [place] 53 25 by mouth every 6 hours when necessary for pain #12 Pyridium 100 mg by mouth every 8 hours for dysuria #15 Follow-up with primary care physician PRN. Urology within one week. Mat Tierney DO May 10, 2017 12:06
[2017-05-17] MEDS ORDERED: PERC5TAB12 PO (15:55)
[2017-06-01] MEDS ORDERED: PERC5TAB12 PO (15:39)
[2017-06-08] MEDS ORDERED: PERC5TAB12 PO (13:05)
[2017-06-29] MEDS ORDERED: PERC5TAB12 PO (14:12)
== END 2017-05-10 14:00 | disposition home or self-care (01) | DRG 694 ==
LOC: PHED 22:47 → PHEDA 05-09 01:28 → PH3A 05-09 02:24
PROVIDERS: ADMIT Hospitalist; ATTEND Hospitalist
PROC: BT1F1ZZ Fluoroscopy of Left Kidney, Ureter and Bladder using Low Osmolar Contrast (ICD-10-PCS; 2017-05-09)
PROC: 0T778DZ Dilation of Left Ureter with Intraluminal Device, Via Natural or Artificial Opening Endoscopic (ICD-10-PCS; principal; 2017-05-09 17:58)
DX: N13.2 Hydronephrosis with renal and ureteral calculous obstruction (principal); N17.9 Acute kidney failure, unspecified; F12.90 Cannabis use, unspecified, uncomplicated; Z87.891 Personal history of nicotine dependence
CPT/HCPCS: 71010; 71275; 74177; 74420; 80053; 80069; 81001; 82550; 82552; 83690; 84484; 85025; 85610; 85730; 93005; 96361; 96374; 96375; C1769; J0690; J1100; J1885; J2250; J2270; J2405; J3010; J7030; J7120; Q9967

== ENCOUNTER → 2017-07-20 | Day surgery (SDC) | payer OTHER ==
[~2017-07-20] VITALS: Ht 180.3 cm; Wt 87.1 kg
[~2017-07-20] MED LIST changes: -ALL220TA PO; +CHLORHEXIDINE GLUCONATE 2 % 1 PACK (2 CLOTHS) TOPICAL PRN; +INSULIN HUMAN REGULAR 1,000 UNITS/10 ML VIAL SQ PRN; +LACTATED RINGER'S 1000 ML IV PRN; +METOPROLOL TARTRATE 25 MG TAB PO PRN; +ONDANSETRON HCL 4 MG/2 ML VIAL IV PUSH PRN; +PERC5TAB12 PO; +POVIDONE IODINE 5% (ANTISEPSIS KIT) 4 APPLICATIONS EACH NARE PRN; +SODIUM CHLORID 0.9% 500 ML IV PRN; -Z.0.NO CURRENT MEDS; +oxyCODONE/ACETAMINOPHEN 5 MG/325 MG TAB PO PRN
--- NOTE | 2017-07-20 06:58 | RADRPT ---
EXAM DATE/TIME: 07/20/2017 06:46 [facility] COMPARISON: No previous studies available for comparison. INDICATIONS : Evaluate for pneumonia, pneumothorax and communicable disease. MEDICAL HISTORY : None. SURGICAL HISTORY : None. ENCOUNTER: Initial ACUITY: 1 day PAIN SCORE: 0/10 LOCATION: Bilateral abdomen FINDINGS: Nonobstructive bowel gas pattern. Left-sided nephroureteral stent is identified. There is a left mid ureteral calculus measuring 9.8 mm again noted. No obvious calculi on the right. Phleboliths in the p bernabe are stable. CONCLUSION: Left ureteral stone. Randall Bingham MD on July 20, 2017 at 6:56 Board Certified Radiologist. This report was verified electronically.
[2017-07-20 07:28] LABS: BASOPHIL % 0.4 % (0.0-2.0); EOSINOPHIL # 0.2 TH/MM3 (0-0.4); EOSINOPHIL % 2.5 % (0.0-4.0); HEMATOCRIT 41.4 % (39.0-51.0); HEMO FLAGS DIFF FINAL; LYMPH % 26.7 % (9.0-44.0); LYMPHOCYTE # 2.6 TH/MM3 (1.0-4.8); MEAN CELL VOLUME 97.4 FL (80.0-100.0); MEAN CORPUSCULAR HEMOGLOBIN 33.5 PG (27.0-34.0); MEAN CORPUSCULAR HGB CONC 34.4 % (32.0-36.0); MONO % 8.5 % (0.0-8.0); NEUT % 61.9 % (16.0-70.0); PLATELET COUNT 257 TH/MM3 (150-450); RED BLOOD COUNT 4.25 MIL/MM3 (4.50-5.90); RED CELL DISTRIBUTION WIDTH 12.5 % (11.6-17.2); WHITE BLOOD COUNT 9.7 TH/MM3 (4.0-11.0)
--- NOTE | 2017-07-20 09:39 | PD.OP ---
Operative Report Date of Surgery: Jul 20, 2017 Preoperative Diagnosis: (1) Ureteral calculus, left Postoperative Diagnosis: (1) Ureteral calculus, left Procedure: Extracorporeal shockwave lithotripsy left ureteral calculus Anesthesia: General Surgeon: Conrad Nassar Boat Builder And Repairer(s): None Operation and Findings: Indication for procedure: Case of a pleasant 22-year-old gentleman with approximately 10 mm left midureteral calculus status post left stent placement in April of this year. Patient presents now to undergo shockwave lithotripsy of the calculus. Operative procedure in detail: Patient was brought to the operating suite and placed supine on the lithotripsy table. He was then placed under general anesthesia. After appropriate timeout was undertaken, high proceeded with localizing the patient's left midureteral calculus with fluoroscopy. He subsequently received shockwave lithotripsy utilizing the [employer] mobile lithotripsy device. The patient received a total of 3000 shocks with a maximum power setting of 20. At the conclusion of the procedure the stones but out and was much vulcanizing machine operator in intensity consistent with fragmentation. He tolerated the procedure without complications and was transferred to the PACU in satisfactory condition. Conrad Nassar MD Jul 20, 2017 09:39
[2017-07-20 10:45] VITALS: BP 144/88; PULSE 77; RESP 20; TEMP 98.5; O2SAT 97
== END | disposition home or self-care (01) ==
LOC: HSDC 06:25
PROVIDERS: ATTEND Urology
DX: N20.1 Calculus of ureter (principal)
CPT/HCPCS: 50590; 74000; 85025

== ENCOUNTER → 2017-08-09 | Outpatient (CLI) | payer OTHER ==
[~2017-08-09] MED LIST changes: -CHLORHEXIDINE GLUCONATE 2 % 1 PACK (2 CLOTHS) TOPICAL PRN; -INSULIN HUMAN REGULAR 1,000 UNITS/10 ML VIAL SQ PRN; -LACTATED RINGER'S 1000 ML IV PRN; -METOPROLOL TARTRATE 25 MG TAB PO PRN; -ONDANSETRON HCL 4 MG/2 ML VIAL IV PUSH PRN; -POVIDONE IODINE 5% (ANTISEPSIS KIT) 4 APPLICATIONS EACH NARE PRN; -SODIUM CHLORID 0.9% 500 ML IV PRN; -oxyCODONE/ACETAMINOPHEN 5 MG/325 MG TAB PO PRN
--- NOTE | 2017-08-09 10:02 | RADRPT ---
EXAM DATE/TIME: 08/09/2017 09:10 [facility] COMPARISON: UROGRAM, RETROGRADE PYELO, May 09, 2017, 18:51. ABDOMEN KUB ONLY, July 20, 2017, 6:46. INDICATIONS : Evaluate left renal stones & stent. MEDICAL HISTORY : Renal calculi. Dyspnea. SURGICAL HISTORY : Left renal stent. ENCOUNTER: Subsequent ACUITY: 4 - 6 months PAIN SCORE: 0/10 LOCATION: Left flank FINDINGS: Supine view of the abdomen was performed. The abdominal bowel gas pattern is normal. As seen on prio r studies, there is a double-J stent in the expected location of the left renal collecting system. Al so noted is a series of stones adjacent to the proximal aspect of the stent and just lateral to the l eft transverse process of L3. Maximum diameter is 2-3 mm but the overall length of the stone burden a ppears to have decreased. Magnified images of the distal [place] loop shows some calcific concretions de veloping on the distal aspect of the catheter. A number of phleboliths are identified in the deep pel vis. CONCLUSION: 1. Series of ureteric stones adjacent to the double-J stent and just left lateral to the left transve rse process of L3. Stone burden appears to be decreased from the prior exam. 2. In addition, there appear to be some calcific concretions developing around the distal [place] loop i n the urinary bladder. Dex Jolly MD on August 09, 2017 at 9:55 Board Certified Radiologist. This report was verified electronically.
== END ==
LOC: HRAD 08:49
PROVIDERS: ATTEND Urology
DX: N20.0 Calculus of kidney (principal)
CPT/HCPCS: 74000